=== PATIENT | male | born 1970 | race Caucasian/White ===

== ENCOUNTER 2018-04-16 07:00 | Day surgery (SDC) | payer OTHER ==
[~2018-04-16 07:00] MED LIST: CEFAZOLIN 2 GM/50 ML (PMX) 50 ML IVPB; SOD CHLORIDE 0.9% 1,000 ML IV
[2018-04-16 07:52] LABS: ADD MAN DIFF? NO
[2018-04-16 07:58] LABS: WHITE BLOOD COUNT 5.8 10^3/ul (4.8-10.8)
[2018-04-16 07:58] LABS: BASOPHILS % 0.5 % (0.0-2.0); EOSINOPHILS # 0.4 10^3/ul (0.0-0.5); EOSINOPHILS % 6.4 % (0.0-7.0); HEMATOCRIT 44.4 % (42.0-52.0); HEMOGLOBIN 15.2 g/dl (14.0-18.0); LYMPHOCYTES # 1.6 10^3/ul (0.8-2.9); LYMPHOCYTES % 28.1 % (15.0-51.0); MEAN CORPUSCULAR HEMOGLOBIN 30.8 pg (29.0-33.0); MEAN CORPUSCULAR HGB CONC 34.2 g/dl (32.0-37.0); MEAN CORPUSCULAR VOLUME 89.9 fl (82.0-101.0); MONOCYTE # 0.5 10^3/ul (0.3-0.9); MONOCYTES % 7.9 % (0.0-11.0); NEUTROPHIL # 3.3 10^3/ul (1.6-7.5); NEUTROPHILS % 56.9 % (39.0-77.0); PLATELET COUNT 210 10^3/UL (140-415); RED BLOOD COUNT 4.94 10^6/ul (4.70-6.10); RED CELL DISTRIBUTION WIDTH 12.5 % (11.5-14.5)
[2018-04-16] MEDS ORDERED: LIDOCAINE 2% (SDV) 5 ML INJ (08:02)
[2018-04-16] MEDS ORDERED: CEFAZOLIN 1 GM INJ (08:02)
[2018-04-16] MEDS ORDERED: FENTAnyl 50 MCG/ML VIAL (08:02)
[2018-04-16] MEDS ORDERED: PROPOFOL 20 ML (08:02)
[2018-04-16] MEDS ORDERED: ONDANSETRON 4 MG INJ (08:03)
[2018-04-16 08:19] LABS: ALANINE AMINOTRANSFERASE 30 IU/L (13-69); ALBUMIN/GLOBULIN RATIO 1.29; ALKALINE PHOSPHATASE 63 IU/L (42-121); ANION GAP 14 (8-16); ASPARTATE AMINO TRANSFERASE 25 IU/L (15-46); BILIRUBIN,INDIRECT 0.6 mg/dl (0-1.1); BILIRUBIN,TOTAL 0.6 mg/dl (0.2-1.3); CARBON DIOXIDE 28 mmol/L (21-31); CHLORIDE 108 mmol/L (97-110); GLUCOSE 102 mg/dl (70-220); TOTAL PROTEIN 7.1 g/dl (6.1-8.1)
[2018-04-16 08:23] LABS: BLOOD UREA NITROGEN 15 mg/dl (7-20); CALCIUM 8.9 mg/dl (8.4-10.2); CREATININE 1.13 mg/dl (0.61-1.24); POTASSIUM 4.5 mmol/L (3.5-5.1); SODIUM 145 mmol/L (135-144)
[2018-04-16] MEDS ORDERED: ONDANSETRON 4 MG INJ IV (08:30)
[2018-04-16] MEDS ORDERED: KETOROLAC 30 MG INJ IV ×2 (08:30→10:00)
[2018-04-16] MEDS ORDERED: FENTAnyl 50 MCG/ML VIAL IV (08:30)
[2018-04-16] MEDS ORDERED: HYDROmorphONE (0.2 MG/ML) 10ML SYG IV ×2 (08:30)
[2018-04-16 08:31] LABS: INR 0.94; PROTIME 12.7 Sec (11.9-14.9)
[2018-04-16 08:32] LABS: PARTIAL THROMBOPLASTIN TIME 30.8 Sec (25.0-35.0)
[2018-04-16] MEDS ORDERED: MIDAZOLAM 1 MG/ML 2 ML INJ (09:01)
[2018-04-16] MEDS ORDERED: LIDOCAINE 1%/EPI 30 ML INJ (09:18)
[2018-04-16] MEDS: LIDOCAINE 1%/EPI 30 ML INJ INJ (09:24)
[2018-04-16] MEDS: BUPIVACAINE 0.25% (MPF) 30 ML INJ (09:31)
[2018-04-16] MEDS ORDERED: IBUPROFEN 600 MG TAB PO (10:00)
== END 2018-04-16 10:55 | disposition home or self-care (01) ==
LOC: SDS 07:00
DX: L05.91 Pilonidal cyst without abscess (principal)
CPT/HCPCS: 11772; 80053; 85025; 85610; 85730; 88307